=== PATIENT | male | born 1950 | race Caucasian/White ===

== ENCOUNTER 2022-12-14 12:28 | Emergency (ER) | payer MEDICARE ==
[2022-12-14] MEDS ORDERED: Ketorolac 30 MG/ML SDV IM ONE (13:36)
== END 2022-12-14 14:15 | disposition home or self-care (01) ==
LOC: JP.ED 12:28
DX: S66.911A Strain of unspecified muscle, fascia and tendon at wrist and hand level, right hand, initial encounter (principal); I25.10 Atherosclerotic heart disease of native coronary artery without angina pectoris; E78.00 Pure hypercholesterolemia, unspecified; I10 Essential (primary) hypertension; I25.2 Old myocardial infarction; Z95.1 Presence of aortocoronary bypass graft; Z79.899 Other long term (current) drug therapy; W01.0XXA Fall on same level from slipping, tripping and stumbling without subsequent striking against object, initial encounter
CPT/HCPCS: 73110; 96372; 99283; J1885; 99282